=== PATIENT | female | born 1970 | race American Indian/Alaskan Native ===

== ENCOUNTER 2017-09-27 10:54 | Inpatient (IN) | payer OTHER ==
--- NOTE | 2017-09-27 11:33 | Emergency Department Report ---
Chief Complaint: Dizziness Stated Complaint: DIZZINESS Time Seen by Provider: 09/27/17 11:30 - HPI History of Present Illness: PT states she had a black out spell at work. She has a hx of anemia and a nurse advised her to be seen. - ROS Review of Systems: + syncope - fatigue + dizziness - Exam Vital Signs: Vital Signs 09/27/17 11:19 Temperature 98.9 F Pulse Rate 99 H Respiratory 18 Rate Blood Pressure 142/83 O2 Sat by Pulse 100 Oximetry Physical Exam: Pt is alert and appropriate gcs 15 MSE screening note: Focused history and physical exam performed. Due to findings the following was ordered: ekg, labs ED Disposition for MSE Condition: Stable
[2017-09-27 12:11] LABS: Basophils % (Auto) 0.6 % (0.0-1.8); Eosinophils % (Auto) 0.4 % (0.0-4.3); Hematocrit 22.1 % (30.3-42.9); Hemoglobin 6.6 gm/dl (10.1-14.3); Mean Corpuscular HGB Conc 30 % (30-34); Platelet Count 308 K/mm3 (140-440); Red Blood Count 3.95 M/mm3 (3.65-5.03); White Blood Count 8.3 K/mm3 (4.5-11.0)
[2017-09-27 12:13] LABS: Mean Corpuscular Hemoglobin 17 pg (28-32); Mean Corpuscular Volume 56 fl (79-97); Red Cell Distribution Width 21.5 % (13.2-15.2)
[2017-09-27 12:26] LABS: Alanine Aminotransferase 10 units/L (7-56); Albumin 4.2 g/dL (3.9-5); Albumin/Globulin Ratio 1.3 %; Alkaline Phosphatase 77 units/L (35-129); Anion Gap 17 mmol/L; BUN/Creatinine Ratio 14; Bilirubin,Total < 0.20 mg/dL (0.1-1.2); Blood Urea Nitrogen 11 mg/dL (7-17); Calcium 8.9 mg/dL (8.4-10.2); Carbon Dioxide 24 mmol/L (22-30); Chloride 100.8 mmol/L (98-107); Glucose 95 mg/dL (65-100); Potassium 4.4 mmol/L (3.6-5.0); Sodium 137 mmol/L (137-145); Total Protein 7.5 g/dL (6.3-8.2)
[2017-09-27 12:43] LABS: Bilirubin,Urine NEG (Negative); Blood,Urine MOD (Negative); Ketones,Urine NEG (Negative); Leukocyte Esterase,Urine NEG (Negative); Mucus,Urine FEW /HPF; Nitrite,Urine NEG (Negative); Protein,Urine <15 mg/dL mg/dL (Negative); Urobilinogen,Urine < 2.0 mg/dL (<2.0)
[2017-09-27] MEDS ORDERED: NACL 0.9% 500 ML 500 ML IV ONE (13:07)
--- NOTE | 2017-09-27 13:14 | Emergency Department Report ---
HPI - General Chief Complaint: Dizziness Time Seen by Provider: 09/27/17 11:30 - HPI HPI: Room 7 The patient is a 46-year-old female presenting with a chief complaint syncope. He states she was in class when she felt "cloudy." The patient is walking she felt near syncopal so she sat down and her symptoms improved. Patient states she stood up to walk to the back of class to get something to drink and the near -syncopal sensation return should herself down to the cranial and told her status to go get help. The patient didn't loss consciousness and we can find other people around her. The patient states her cycle began 3 days ago and yesterday became heavy. Patient states she goes through approximately 24 tampons a day and 5 pads daily for her cycles. The patient states it seems as though for the past couple months the time between her menses has been decreasing. 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) Additional medical history: anemia - Surgical History Past Surgical History?: No Additional Surgical History: c section x 3, tracheotomy, cerclage x2 - Social History Smoking Status: Never Smoker Substance Use Type: None (denies illicit drug use), Alcohol (occasional) - Medications Home Medications: Home Medications Medication Instructions Recorded Confirmed Last Taken Type Ferrous Sulfate [Iron] 325 mg PO DAILY 09/27/17 09/27/17 Unknown History Multivitamin Tab [Multiple Vitamin 1 each PO QDAY 09/27/17 09/27/17 Unknown History TAB (Theragran)] ED Review of Systems ROS: Stated complaint: DIZZINESS Other details as noted in HPI Comment: All other systems reviewed and negative Constitutional: malaise. denies: chills, fever Eyes: denies: eye pain, eye discharge, vision change ENT: denies: ear pain, throat pain Respiratory: denies: cough, shortness of breath, wheezing Cardiovascular: denies: chest pain, palpitations Endocrine: no symptoms reported Gastrointestinal: denies: abdominal pain, nausea, diarrhea Genitourinary: abnormal menses. denies: urgency, dysuria, discharge Musculoskeletal: denies: back pain, joint swelling, arthralgia Skin: denies: rash, lesions Neurological: other (syncope). denies: headache Psychiatric: denies: anxiety, depression Hematological/Lymphatic: denies: easy bleeding, easy bruising Physical Exam - Physical Exam Vital Signs: Vital Signs 09/27/17 11:19 Temperature 98.9 F Pulse Rate 99 H Respiratory 18 Rate Blood Pressure 142/83 O2 Sat by Pulse 100 Oximetry Physical Exam: GENERAL: The patient is well-developed well-nourished female lying on stretcher not appearing to be in acute distress. [] HEENT: Normocephalic. Atraumatic. Extraocular motions are intact. Patient has moist mucous membranes. NECK: Supple. Trachea midline CHEST/LUNGS: Clear to auscultation. There is no respiratory distress noted. HEART/CARDIOVASCULAR: Regular. There is no tachycardia. There is no gallop rub or murmur. ABDOMEN: Abdomen is soft, nontender. Patient has normal bowel sounds. There is no abdominal distention. SKIN: There is no rash. There is no edema. There is no diaphoresis. NEURO: The patient is awake, alert, and oriented. The patient is cooperative. The patient has no focal neurologic deficits. The patient has normal speech. Cranial nerves II through XII grossly intact, no drift MUSCULOSKELETAL: There is no evidence of acute injury. PELVIC: Small to moderate amount of dark red blood in vaginal vault ED Course Vital Signs 09/27/17 11:19 Temperature 98.9 F Pulse Rate 99 H Respiratory 18 Rate Blood Pressure 142/83 O2 Sat by Pulse 100 Oximetry - Consultations Consultation #1: 09/27/17 16:14 KILN CLEANER paged 09/27/17 16:25 Case discussed with [facility]- discuss case with Dr. Garzon. Admit patient to mother [facility] ED Medical Decision Making - Lab Data Result diagrams: 09/27/17 11:43 09/27/17 11:43 Laboratory Tests 09/27/17 09/27/17 09/27/17 11:43 11:43 11:43 WBC 8.3 RBC 3.95 Hgb 6.6 L Hct 22.1 L MCV 56 L MCH 17 L MCHC 30 RDW 21.5 H Plt Count 308 Lymph % (Auto) 8.2 L Loup % (Auto) 6.0 Eos % (Auto) 0.4 Baso % (Auto) 0.6 Lymph # 0.7 L Loup # 0.5 Eos # 0.0 Baso # 0.1 Seg Neutrophils % 84.8 H Seg Neutrophils # 7.0 Sodium 137 Potassium 4.4 Chloride 100.8 Carbon Dioxide 24 Anion Gap 17 BUN 11 Creatinine 0.8 Estimated GFR > 60 BUN/Creatinine Ratio 14 Glucose 95 Calcium 8.9 Total Bilirubin < 0.20 AST 14 ALT 10 Alkaline Phosphatase 77 Troponin T Total Protein 7.5 Albumin 4.2 Albumin/Globulin Ratio 1.3 HCG, Qual Negative Urine Color Urine Turbidity Urine pH Ur Specific Holden Urine Protein Urine Glucose (UA) Urine Ketones Urine Blood Urine Nitrite Urine Bilirubin Urine Urobilinogen Ur Leukocyte Esterase Urine WBC (Auto) Urine RBC (Auto) Urine Mucus 09/27/17 09/27/17 11:43 11:49 WBC RBC Hgb Hct MCV MCH MCHC RDW Plt Count Lymph % (Auto) Loup % (Auto) Eos % (Auto) Baso % (Auto) Lymph # Loup # Eos # Baso # Seg Neutrophils % Seg Neutrophils # Sodium Potassium Chloride Carbon Dioxide Anion Gap BUN Creatinine Estimated GFR BUN/Creatinine Ratio Glucose Calcium Total Bilirubin AST ALT Alkaline Phosphatase Troponin T < 0.010 Total Protein Albumin Albumin/Globulin Ratio HCG, Qual Urine Color Yellow Urine Turbidity Clear Urine pH 6.0 Ur Specific Holden 1.006 Urine Protein <15 mg/dl Urine Glucose (UA) Neg Urine Ketones Neg Urine Blood Mod Urine Nitrite Neg Urine Bilirubin Neg Urine Urobilinogen < 2.0 Ur Leukocyte Esterase Neg Urine WBC (Auto) 1.0 Urine RBC (Auto) 2.0 Urine Mucus Few - EKG Data -: EKG Interpreted by Ms EKG shows normal: sinus rhythm Rate: normal - EKG Data When compared to previous EKG there are: previous EKG unavailable Interpretation: normal EKG - Radiology Data Radiology results: report reviewed (CT head, pelvic ultrasound), image reviewed (pelvic ultrasound, CT head) Pelvic ultrasound (read by radiologist)-enlarged uterus with small uterine fibroid disease. 3.[address] ovarian cyst CT head (read by radiologist)-no acute intracranial CT abnormality. - Differential Diagnosis symptomatic anemia, ICH, dehydration, Critical care attestation.: If time is entered above; I have spent that time in minutes in the direct care of this critically ill patient, excluding procedure time. ED Disposition Clinical Impression: Symptomatic anemia, Syncope, Menorrhagia Disposition: OP ADMIT IP TO THIS HOSP Is pt being admited?: Yes Does the pt Need Aspirin: No Condition: Fair Instructions: Syncope (ED) Referrals: PRIMARY CARE, [Primary Care Provider] - 3-5 Days Time of Disposition: 16:25
--- NOTE | 2017-09-27 15:04 | Ultrasound Report ---
ULTRASOUND PELVIC COMPLETE ULTRASOUND TRANSVAGINAL HISTORY: Menorrhagia. TECHNIQUE: Transabdominal and transvaginal ultrasound with color and spectral doppler interrogation. No comparison. The uterus is moderately enlarged measuring 14 x 7 x 7 cm. At least one intramural fibroid near the uterine fundus measures 1.1 cm. Smaller uterine fibroids are likely present. No large submucosal fibroid is appreciated. The endometrial stripe measures 11 mm. No mass or fluid collection. The right ovary measures 5.3 x 4.7 x 5.1 cm. A 3.7 cm simple cyst is identified in the right ovary. The left ovary is unremarkable measuring 4.1 x 3.8 x 3.4 cm. No pelvic fluid collection. IMPRESSION: Enlarged uterus with mild uterine fibroid disease. 3.7 cm right ovarian cyst.
[2017-09-27] MEDS ORDERED: NACL 0.9% 1000 ML 1,000 ML ONE (15:27)
--- NOTE | 2017-09-27 15:45 | Cat Scan Report ---
CT HEAD WITHOUT CONTRAST INDICATION: Syncope. COMPARISON: None similar. FINDINGS: Noncontrast head CT demonstrates normal ventricles and sulci without acute or recent infarct, hemorrhage, mass effect or midline shift. No abnormal extra-axial fluid collections. Slight periventricular hypodensities. Posterior fossa structures and basilar cisterns appear within normal limits. Symmetric eye globes. Clear paranasal sinuses and mastoid air cells. Intact calvarium. Normal overlying scalp soft tissues. Few radiopaque dental material incidentally noted. CONCLUSION: No acute intracranial CT abnormality, as described. Thank you for the opportunity to participate in this patient's care.
[2017-09-27] MEDS ORDERED: ZOFRAN IV PRN (16:32)
[2017-09-27] MEDS ORDERED: TYLENOL PO PRN (16:32)
[2017-09-27] MEDS ORDERED: MILK OF MAGNESIA PO PRN (16:32)
[2017-09-27] MEDS ORDERED: PREMARIN IV ONE (16:36)
--- NOTE | 2017-09-27 16:38 | History and Physical Report ---
History of Present Illness Date of examination: 09/27/17 Date of admission: 09/27/17 Chief complaint: dizziness History of present illness: Consulted regarding this pt with HPI recorded as follows by ER provider: "The patient is a 46-year-old female presenting with a chief complaint syncope. He states she was in class when she felt "cloudy." The patient is walking she felt near syncopal so she sat down and her symptoms improved. Patient states she stood up to walk to the back of class to get something to drink and the near-syncopal sensation return should herself down to the cranial and told her status to go get help. The patient didn't loss consciousness and we can find other people around her. The patient states her cycle began 3 days ago and yesterday became heavy. Patient states she goes through approximately 24 tampons a day and 5 pads daily for her cycles. The patient states it seems as though for the past couple months the time between her menses has been decreasing. The patient states she is currently having cycles every 19-20 days " Pt was seen last in the office by Dr. Fan in 2014 and at this time she was s/p transfusion for symptomatic anemia. She desired a mirena at this time and it was attempted by Dr. Fan as well as previous provider prior to seeing Dr. Sales, but could not be placed due to stenosis of the cx . Pt will be admitted at this time, transfusion, and have outpt f/u for work up and treatment of menorrhagia. Pt states that she desires to have a hysterectomy. Past Medical History: Anemia PE Blood Transfusions Past Surgical History: D&C: Tracheotomy 3 yo cercalge x 2 Tubal Ligation Family History Summary: Daughter () - Has No Family History of Ovarvian Cancer - Please disregard relationships chosen - Entered On: 06/18/2015 Daughter (ramez.) - Has No Family History of Diabetes - Please disregard relationships chosen - Entered On: 06/18/2015 Daughter (ramez.) - Has No Family History of Colon Cancer - Please disregard relationships chosen - Entered On: 06/18/2015 Daughter () - Has Family History of Hypertension - Please disregard relationships chosen - Entered On: 06/18/2015 Daughter () - Has Family History of Coronary Heart Disease - Please disregard relationships chosen - Entered On: 06/18/2015 Daughter (biol.) - Has Family History Breast Cancer - Please disregard relationships chosen - Entered On: 06/18/2015 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 only 1cm in size) Social history: no significant social history, Medications and Allergies Allergies Allergy/AdvReac Type Severity Reaction Status Date / Time Penicillins Allergy Swelling Verified 09/27/17 11:19 shellfish derived AdvReac Angioedema Verified 09/27/17 11:19 Home Medications Medication Instructions Recorded Confirmed Last Taken Type Ferrous Sulfate [Iron] 325 mg PO DAILY 09/27/17 09/27/17 Unknown History Multivitamin Tab [Multiple Vitamin 1 each PO QDAY 09/27/17 09/27/17 Unknown History TAB (Theragran)] Active Meds: Active Medications Acetaminophen (Tylenol) 650 mg PO Q4H PRN PRN Reason: Pain MILD(1-3)/Fever >100.5/MURILLO Bisacodyl (Dulcolax) 10 mg ME QDAY PRN PRN Reason: Constipation unrelieved by MOM Estrogens Conjugated (Premarin) 25 mg IV ONCE ONE Stop: 09/27/17 16:37 Magnesium Hydroxide (Milk Of Magnesia) 30 ml PO Q4H PRN PRN Reason: Constipation Ondansetron HCl (Zofran) 4 mg IV Q8H PRN PRN Reason: N/V unrelieved by Reglan Review of Systems All systems: negative - Vital Signs Vital signs: Vital Signs Temp Pulse Resp BP Pulse Ox 98.9 F 99 H 18 142/83 100 09/27/17 11:19 09/27/17 11:19 09/27/17 11:19 09/27/17 11:19 09/27/17 11:19 Temp Pulse Resp BP Pulse Ox 98.9 F 86 18 143/78 100 09/27/17 11:19 09/27/17 14:10 09/27/17 14:08 09/27/17 15:01 09/27/17 15:01 - Physical Exam Lungs: Positive: Normal air movement Genitourinary (Female): Positive: other (deferred as pt states she just changed pad) Extremities: Positive: normal. Negative: tenderness, edema Results Result Diagrams: 09/27/17 11:43 09/27/17 11:43 Abnormal lab results 09/27/17 09/27/17 Range/Units 11:43 13:28 Hgb 6.6 L (10.1-14.3) gm/dl Hct 22.1 L (30.3-42.9) % MCV 56 L (79-97) fl MCH 17 L (28-32) pg RDW 21.5 H (13.2-15.2) % Lymph % (Auto) 8.2 L (13.4-35.0) % Lymph # 0.7 L (1.2-5.4) K/mm3 Seg Neutrophils % 84.8 H (40.0-70.0) % Crossmatch See Detail All other labs normal. Assessment and Plan - Patient Problems (1) Menorrhagia Current Visit: Yes Status: Acute Qualifiers: Menorrahagia type: M Plan to address problem: -s/p premarin times one dose -will give provera po at this time -pt desires hyst (2) Symptomatic anemia Current Visit: Yes Status: Acute Plan to address problem: -s/p one unit of PRBC -will transfuse 2 units -repeat h/h (3) Syncope Current Visit: Yes Status: Acute Qualifiers: Syncope type: S Encounter type: E
[2017-09-27] MEDS ORDERED: DULCOLAX PR PRN (17:30)
[2017-09-27] MEDS ORDERED: WATER FOR INJ (PF) 10 ML ONE (19:37)
[2017-09-28 01:30] LABS: Hematocrit 24.9 % (30.3-42.9); Hemoglobin 7.9 gm/dl (10.1-14.3)
[2017-09-28] MEDS ORDERED: PROVERA PO SCH (10:00)
--- NOTE | 2017-09-28 13:15 | Discharge Summary ---
Providers - Providers Date of Admission: 09/27/17 16:22 Date of discharge: 09/28/17 Attending physician: GAEL PERKINS Primary care physician: BLAIRE CHARLES MD Hospitalization Condition: Fair Hospital course: Please see dictated H&P. Patient admitted receive a blood transfusion did have discussion about history of PE will discharge on no hormones patient is having minimal bleeding at this time with no orthostatic symptoms will follow up in office AST AP patient desires definitive treatment discussed the need a medical workup was started process when she returns to the office patient was discharged with precautions about bleeding and i embolus Exam - Constitutional Vitals: Temp Pulse Resp BP Pulse Ox 98.4 F 83 18 120/68 100 09/28/17 08:30 09/28/17 08:30 09/28/17 08:30 09/28/17 08:30 09/27/17 15:01 Plan Activity: advance as tolerated Diet: regular Additional Instructions: Patient states will make a follow-up appointment in one to weeks in office patient previous patient Follow up with: BLAIRE CHARLES MD [Primary Care Provider] - 3-5 Days
[2017-09-28 18:32] VITALS: BP 129/78
== END 2017-09-28 14:45 | disposition home or self-care (01) | DRG 812 ==
LOC: ED 10:54 → OB 16:22
PROVIDERS: ADMIT Obstetrics & Gynecology; ATTEND Obstetrics & Gynecology
PROC: 30233N1 Transfusion of Nonautologous Red Blood Cells into Peripheral Vein, Percutaneous Approach (ICD-10-PCS; principal; 2017-09-27)
DX: D64.9 Anemia, unspecified (principal); I25.2 Old myocardial infarction; Z98.51 Tubal ligation status; Z86.711 Personal history of pulmonary embolism; Z90.710 Acquired absence of both cervix and uterus; Z88.0 Allergy status to penicillin; N92.0 Excessive and frequent menstruation with regular cycle
CPT/HCPCS: 36415; 70450; 76830; 76856; 80053; 81001; 84484; 84703; 85018; 85025; 86850; 86900; 86901; 86920; 93005; 93010; J1410; J7030; P9016

== ENCOUNTER 2018-05-27 05:59 | Inpatient (IN) | payer OTHER ==
[2018-05-24 10:29] LABS: Basophils # (Auto) 0.1 K/mm3 (0.0-0.1); Basophils % (Auto) 1.1 % (0.0-1.8); Eosinophils # (Auto) 0.1 K/mm3 (0.0-0.4); Hematocrit 31.1 % (30.3-42.9); Hemoglobin 9.8 gm/dl (10.1-14.3); Lymphocytes # (Auto) 0.7 K/mm3 (1.2-5.4); Mean Corpuscular HGB Conc 32 % (30-34); Mean Corpuscular Volume 74 fl (79-97); Monocytes # (Auto) 0.3 K/mm3 (0.0-0.8); Monocytes % (Auto) 6.5 % (0.0-7.3); Platelet Count 350 K/mm3 (140-440); Red Blood Count 4.24 M/mm3 (3.65-5.03); Red Cell Distribution Width 19.2 % (13.2-15.2)
[2018-05-24 10:30] LABS: Mean Corpuscular Hemoglobin 23 pg (28-32)
[2018-05-24 10:43] LABS: Alanine Aminotransferase 7 units/L (7-56); Albumin 3.5 g/dL (3.9-5); BUN/Creatinine Ratio 10; Blood Urea Nitrogen 8 mg/dL (7-17); Calcium 8.6 mg/dL (8.4-10.2); Hemolysis Index 8
--- NOTE | 2018-05-24 16:43 | Anesthesia Consultation ---
Anesthesia Consult and Med Hx Date of service: 05/24/18 - Airway Anesthetic Teeth Evaluation: Good ROM Head & Neck: Adequate Mental/Hyoid Distance: Adequate Mallampati Class: Class I Intubation Access Assessment: Good - Pulmonary Exam CTA: Yes - Cardiac Exam Cardiac Exam: RRR - Pre-Operative Health Status ASA Pre-Surgery Classification: ASA2 Proposed Anesthetic Plan: General (PONV precautions) - Pulmonary Hx Smoking: No Hx Asthma: No COPD: No Hx Pneumonia: Yes (last episode 7 years ago.) Hx Sleep Apnea: No (ESTER PRE SCREEN NEGATIVE) - Cardiovascular System Hx Hypertension: No Hx Heart Attack/AMI: Yes (3 yrs ago) - Endocrine Hx End Stage Renal Disease: No - Hematic Hx Anemia: Yes Hx Sickle Cell Disease: No (SC TRAIT ONLY) - Other Systems Hx Cancer: No
--- NOTE | 2018-05-26 17:03 | History and Physical Report ---
History of Present Illness Date of examination: 05/25/18 History of present illness: Patient has been reassessed/reevaluated. H&P has been reviewed. No interval changes. This is a 47 years old female who presents with menstrual disorder. She complains of irregular menses, mid-cycle spotting, heavy bleeding, dysmenorrhea , history of fibroids and cramping,. Menstrual flow lasts > 7 days. , the patient has had E.D. visits. Patient seen on 03/12/18 for bleeding and pain THe patient also has concerns regarding menstrual disorder. The patient complains of spotting, menses, heavy bleeding, lack of menses, dysmenhorrhea, orthostatic symptoms, fatigue and cramping, but denies she may be , history of thyroid disease, history of fibroids, history of bleeding disorders and lightheadness. Menstrual periods have been irregular and with excessive flow. Menstrual flow lasts >7 days. Patient's work up has included pelvic ultrasounds Treatments have included hospitalizations with blood transfusions Patient's symptoms when present disrupts her normal daily activities Patient desires definitive treatment Vital Signs: Patient Profile: 47 Years Old Female Height: 66 inches (167.64 cm) Weight: 203 pounds (92.27 kg) BMI: 32.76 BSA: 2.01 Past History : 8 Term Births: 2 Premature Births: 1 Living Children: 2 Para: 3 Mult. Births: 0 Prev : 2 Aborta: 5 Elect. Ab: 0 Spont. Ab: 0 Ectopics: 0 # 1 Delivery date: 1987 Delivery type: SAB # 2 Delivery date: 1995 Delivery type: SAB # 3 Delivery date: 1995 Delivery type: SAB # 4 Delivery date: 1997 Weeks Gestation: 24 Delivery type: Comments: Stillbirth labor induced # 5 Delivery date: Delivery type: SAB Comments: D&C done # 6 Delivery date: 1998 Delivery type: SAB # 7 Delivery date: Weeks Gestation: 39 Delivery type: [place] [facility] [place] Sex: Male weight: 8lbs 5oz Comments: Cerclage placed # 8 Delivery date: 11/23/2008 Weeks Gestation: [id number] Delivery type: Anesthesia type: spinal Delivery location: [facility] Sex: female 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: D&C: Tracheotomy 3 yo cercalge x 2 Tubal Ligation Abnormal PAP: negative Uterine Anomaly: negative Infection History HIV Risk Eval: no Hx of STD: chlamydia Current Allergies (reviewed today): PENICILLIN (Critical) Past Medical History: Anemia PE Blood Transfusions Past Surgical History: D&C: Tracheotomy 3 yo cercalge x 2 Tubal Ligation Family History Summary: Has Family History Breast Cancer - Has Family History of Coronary Heart Disease Has Family History of Hypertension Has No Family History of Colon Cancer Has No Family History of Diabetes Has No Family History of Ovarvian Cancer 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 Denies fever, chills, sweats, anorexia, weakness, malaise, weight loss and sleep disorder. Complains of menorrhagia, abnormal vaginal bleeding and genital sores. Denies vaginal discharge, incontinence, dysuria, hematuria, urinary frequency, amenorrhea, pelvic pain, decreased libido, painful periods, painful sex, urinary urgency, hot flashes, vaginal dryness, vaginal itching and vaginal odor. CV Denies chest pains, palpitations, syncope, dyspnea on exertion, orthopnea, PND and peripheral edema. Resp Denies cough, dyspnea at rest, excessive sputum, hemoptysis, wheezing and pleurisy. GI Denies nausea, vomiting, diarrhea, constipation, change in bowel habits, abdominal pain, melena, hematochezia, jaundice, gas/bloating, indigestion/ heartburn, dysphagia and odynophagia. Breast Denies left breast lump, right breast lump, nipple discharge, bloody discharge from nipple, breast pain, abnormal mammogram and breast enlargement. Psych Denies depression, anxiety, irritability and mood swings. [Labs In-House] Past History Past Medical History: other (See HPI ) Past Surgical History: Other (See HPI ) Social history: other (See HPI ) Family history: other (See HPI ) Medications and Allergies Allergies Allergy/AdvReac Type Severity Reaction Status Date / Time Penicillins Allergy Anaphylaxis Verified 05/23/18 14:52 iodine AdvReac Rash Verified 05/27/18 06:47 shellfish derived AdvReac Anaphylaxis Verified 05/23/18 14:52 Home Medications Medication Instructions Recorded Confirmed Last Taken Type Ferrous Sulfate [Iron] 325 mg PO DAILY 09/27/17 05/23/18 Unknown History Multivitamin Tab [Multiple Vitamin 1 each PO QDAY 09/27/17 05/23/18 Unknown History TAB (Theragran)] Active Meds: Active Medications Dexamethasone (Decadron) 4 mg IV PREOP ONE Stop: 05/27/18 06:01 Lactated Ringer's (Lactated Ringers) 1,000 mls @ 100 mls/hr IV DIRECT TERRI Midazolam HCl (Versed) 2 mg IV PREOP NR Stop: 05/27/18 23:59 Scopolamine (Transderm-Scop) 1 each TD PREOP NR Stop: 05/27/18 23:59 Review of Systems Constitutional: other (See HPI ) Exam - Physical Exam Narrative exam: HEENT: normocephalic, no lesions or deformities Skin no significant abnormal lesions or rashes Chest: respiratory effort normal, clear to auscultation Breasts: skin/areolae normal, no nipple discharge, no erythema/warmth/tenderness , and axillae normal. 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 Questions answered. Discussed with patient various medical, surgical and radiological therapies common for treatment including myomectomy hysterectomy and uterine artery embolization Patient desires definitive treatment .Patient desires hysterectomy Discussed risks and benefits of laparotomy, laparoscopy, vaginal and robotic assisted approaches for hysterectomies Patient desires robotic assisted total hysterectomy. Patient desires robotic assisted total hysterectomy. Consent reviewed and signed . The risks and alternatives for this surgery were reviewed with the patient. Discuss the risks of the surgery including infection, bleeding possibly heavy enough to require a blood transfusion, possible damage to bowel, bladder or ureter. Patient understand that this surgery with make her sterile.Patient understands if her ovaries are removed she will become menopausal. Also if unable to complete robitcally a laparotomy may be required (2) Anemia Current Visit: No Status: Acute Qualifiers: Iron deficiency anemia type: chronic blood loss Plan to address problem: Secondary to problem #4 (3) History of pulmonary embolism Current Visit: No Status: Chronic Plan to address problem: PE prophylaxis (4) Menorrhagia Current Visit: No Status: Acute Qualifiers: Menorrahagia type: with irregular cycle Qualified Code(s): N92.1 - Excessive and frequent menstruation with irregular cycle Plan to address problem: Secondary to problem #1 (5) Stenotic cervical os Current Visit: No Status: Chronic
[2018-05-27] MEDS ORDERED: VERSED IV NR (06:00)
[2018-05-27] MEDS ORDERED: LACTATED RINGERS 1,000 ML IV SCH (06:00)
[2018-05-27] MEDS ORDERED: TRANSDERM-SCOP TD NR (06:00)
[2018-05-27] MEDS ORDERED: DECADRON IV ONE (06:00)
[2018-05-27] MEDS ORDERED: NACL BACTERIOSTATIC INFILTRATI ONE (06:30)
[2018-05-27] MEDS ORDERED: GARAMYCIN/NS 120MG/100ML 120 MG/100 ML BAG IV SCH (07:00)
[2018-05-27] MEDS ORDERED: CLEOCIN 600 MG/50 mL 600 MG/50 ML BAG IV SCH (07:00)
[2018-05-27] MEDS ORDERED: GARAMYCIN 120 MG in NACL 0.9% 100 ML IV SCH (07:00)
--- NOTE | 2018-05-27 07:00 | Anesthesia Day of Surgery ---
Anesthesia Day of Surgery - Day of Surgery Patient Examined: Yes Patient H&P Reviewed: Yes Patient is NPO: Yes
[2018-05-27] MEDS ORDERED: PERCOCET 5/325 PO PRN (07:01)
[2018-05-27] MEDS ORDERED: SUBLIMAZE IV ONE (07:01)
[2018-05-27] MEDS ORDERED: ZOFRAN IV PRN ×2 (07:01→12:55)
[2018-05-27] MEDS ORDERED: XYLOCAINE 1% 20 mL INFILTRATI NR (07:15)
[2018-05-27] MEDS ORDERED: METHYLENE BLUE ONE (07:23)
[2018-05-27] MEDS ORDERED: NEOSPORIN GU IR ONE ×2 (07:23→09:13)
[2018-05-27] MEDS ORDERED: SUBLIMAZE ONE ×2 (07:26→07:54)
[2018-05-27] MEDS ORDERED: ZOFRAN ONE (07:26)
[2018-05-27] MEDS ORDERED: ZEMURON IV ONE (07:26)
[2018-05-27] MEDS ORDERED: VERSED ONE (07:26)
[2018-05-27] MEDS ORDERED: XYLOCAINE CARDIAC IV ONE (07:26)
[2018-05-27] MEDS ORDERED: NEO SYNEPHRINE/NS Syringe(OR USE) IV ONE (07:26)
[2018-05-27] MEDS ORDERED: DIPRIVAN 10 MG/ML IV ONE (07:27)
[2018-05-27] MEDS ORDERED: ePHEDrine 50 MG/5 ML-0.9% NACL IV ONE (07:29)
[2018-05-27] MEDS ORDERED: MARCAINE 0.5% 30 ML INFILTRATI ONE (07:30)
[2018-05-27] MEDS ORDERED: MARCAINE 0.5% INFILTRATI NR (08:00)
[2018-05-27] MEDS ORDERED: NACL P/F VIAL (10 ML) INFILTRATI NR (08:00)
[2018-05-27] MEDS ORDERED: NACL 0.9% IR ONE ×2 (09:13)
[2018-05-27] MEDS ORDERED: DECADRON ONE (09:55)
[2018-05-27] MEDS ORDERED: DILAUDID ONE (10:52)
[2018-05-27] MEDS ORDERED: BREVIBLOC IV ONE (11:30)
[2018-05-27] MEDS ORDERED: BLOXIVERZ ONE (11:52)
[2018-05-27] MEDS ORDERED: ROBINUL ONE ×2 (11:53)
[2018-05-27] MEDS: DILAUDID IV PRN ×4 (12:30→13:10)
[2018-05-27] MEDS ORDERED: TORADOL ONE (12:35)
--- NOTE | 2018-05-27 12:38 | Operative Report ---
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 Patient with adhesions of vomiting anterior uterus to bladder and adhesions of the right adnexa the sidewall and the intestines. Specimen(s): Uterus including cervix was bilateral fallopian tubes and right ovary Procedure: Patient was brought to the operating room where general anesthesia was induced without difficulty. Patient was placed in the dorsal lithotomy position. Prepped and draped in the usual sterile manner for robotic procedure. Flores catheter was placed without difficulty. Speculum was placed in the vagina. A large V-Care Uterine manipulator was placed without difficulty. Attention was now switched to the patient's abdomen. A vertical supra-umbilicus incision was made with a scalpel. A 10-12 trocar was placed in this incision under direct visualization. Intra-abdominal placement was verified with no evidence of internal organ damage. The patient pelvic findings were noted as above. It was determined that the patient was a candidate for robotic procedure. On both sides the supra-umbilical incision at 8 cm, incisions were made for robotic trocar. Each robotic trocar was placed under direct visualization with no evidence of internal organ damage. Two cashier assistant ports were then placed. One 5 mm trocar was placed 2 fingerbreadths above the right iliac crest. The second diversional therapist's assistant port was made in the right upper quadrant between the camera port and the right robotic arm port under direct visualization with no evidence of internal organ damage. At this time the patient was placed in extreme Trendelenburg. The da Deb robot was then docked on the patient's left side. At this time I took my place under the robotic operating milian. Starting on the patient's right side the right ureter was clearly seen out of the operative field. The ovarian vessels were clearly seen cauterize and cut with the robotic scissors. The meso salpinx were cauterized and cut reaching to the round ligament. The round ligament was cauterized and cut. The leaves of the broad ligament on that side was anteriorly and posteriorly. The anterior leaves were use to form a bladder flap anteriorly the posterior leaf was cut exposing the uterine vessels on that side. The uterine vessels were cauterized and cut the bladder flap was more clearly made. Attention was then switched to the patient's left side. Where the ureter was again identified and cleared out of the field. The adhesions on the distal 2 to the intestines and left ovary were taken down. Starting at the distal end of fallopian tube the mesosalpinx was cauterized and cut lesion up to the proximal part to her came across the tube cauterized and cut and removed the left fallopian tube. Uterine ovarian complex was then cauterized and cut. The round ligament was cauterized and cut leaves of the broad ligament was then opened exposing the uterine vessels on the left. The uterine vessels were cauterized and cut. Bladder flap was then continued from the left side and the bladder was pushed off the anterior cervix.. At this time the uterus was appearing very cyanotic. After inspecting the bladder flap insured no evidence of bladder injury, the colpotomy was then started. Incision started at 6:00 until the V-Care could be seen. This incision was extended from 6:00 to 9:00. Then from 6:00 to 3:00. Then from 9:00 to 12:00. This incision was extended from 3:00 to 12:00. At this time colpotomy was complete with no evidence of adjacent organ damage. I along with the help of the cashier assistant remove the uterus from through the colpotomy site. Due to the size of the uterus did have a core the uterus out to remove along with the right adnexa. The vaginal cuff was irrigated and cauterized and found to be hemostatic. The cuff was closed with roboticly using 0 V- Lock suture. The uterosacrals were plicated to help prevent prolapse. This closure was hemostatic after irrigation and Bovie. All pedicles were inspected and found to be hemostatic. The ureters were identified bilaterally and found to be functioning normal. The Flores bag had clear yellow urine. Jennifer is placed across the vaginal cuff. All instruments were then removed. The large trocar site was closed in layers and 4-0 Vicryl. The smaller incisions were closed subcuticularly with 4-0 Vicryl. The patient tolerated procedure well. She was awakened in the operating room and accompanied to the recovery room in good condition.
[2018-05-27] MEDS ORDERED: MILK OF MAGNESIA PO PRN (12:55)
[2018-05-27] MEDS: TORADOL IV SCH ×3 (12:55→23:54)
[2018-05-27] MEDS ORDERED: NORCO 5/325 PO PRN (12:55)
[2018-05-27] MEDS: D5LR 1,000 ML IV SCH ×2 (17:00→23:54)
--- NOTE | 2018-05-27 18:21 | Event Note ---
Date: 05/27/18 Discussed operative findings with patient and family. Good urine output. Patient c/o vaginal pain. BP elevated will watch. Will ambulate this pm/ Patient desire mckeon out this pm. Incisions healing well Continue routine post op care
[2018-05-27] MEDS ORDERED: NARCAN 0.4 MG/1 ML IV PRN (19:17)
[2018-05-27] MEDS ORDERED: MORPHINE PCA 30MG/30ML IV SCH (20:00)
[2018-05-27 20:59] LABS: Hematocrit 33.4 % (30.3-42.9); Hemoglobin 10.4 gm/dl (10.1-14.3)
[2018-05-27] MEDS: HEPARIN SUB-Q SCH (21:47)
[2018-05-27] MEDS: COLACE PO SCH (21:48)
[2018-05-27] MEDS: CLEOCIN 600 MG/50 mL 600 MG/50 ML BAG IV SCH (21:49)
[2018-05-28 04:40] LABS: Hematocrit 29.6 % (30.3-42.9); Hemoglobin 9.5 gm/dl (10.1-14.3)
[2018-05-28] MEDS: CLEOCIN 600 MG/50 mL 600 MG/50 ML BAG IV SCH (06:36)
[2018-05-28] MEDS: TORADOL IV SCH (06:37)
[2018-05-28] MEDS: HEPARIN SUB-Q SCH (08:25)
--- NOTE | 2018-05-28 09:51 | Progress Note ---
Assessment and Plan - Patient Problems (1) History of robot-assisted laparoscopic hysterectomy Current Visit: Yes Status: Acute Plan to address problem: D/C GROWTH MEDIA MIXER MUSHROOM Encourage ambulation Possibly d/c after voiding (2) Anemia Current Visit: No Status: Acute Qualifiers: Iron deficiency anemia type: chronic blood loss Plan to address problem: asymptomatic (3) History of pulmonary embolism Current Visit: No Status: Chronic Plan to address problem: Patient gives a h/o PE after extensive traveling back and forth to [place]( 2013). She was anticoagulated in [place] and d/c'd home on Lovenox. She was changed to Coumadin by Dr. Silva. She remained on Coumadin of 6months but never followed up with Dr. Silva to complete her evaluation. She denies family history of inheritable coagulopathy or DVT/PE. Staes multiple SAB d/t cervical insufficiency only. Patient admits she usually does not ambulate obtain in the summer when she's not working. S/w Dr. Silva who agrees with DVT/PE prophylaxis in the form of Lovenox 30mg SQ qd for a short course. Patient was informed of the importance of ambulation ~1mijle qd on her property to prevent DVT/PE. She voiced understanding and agrees to plan. Subjective Date of service: 05/28/18 Principal diagnosis: POD#1 Robotic assisted total hysterectomy with bilateral salpingectomy Interval history: Resting in bed, feels much better now, GROWTH MEDIA MIXER MUSHROOM still infusion, has not voided as of yet Objective - Constitutional Vitals: Vital Signs - 12hr 05/27/18 05/28/18 05/28/18 23:54 00:00 02:00 Temperature 99.7 F H Pulse Rate 85 Respiratory 18 18 16 Rate Blood Pressure 142/86 [Right] O2 Sat by Pulse 100 Oximetry 05/28/18 05/28/18 05/28/18 04:00 04:50 07:05 Temperature 98.2 F 98.6 F Pulse Rate 73 85 Respiratory 18 18 20 Rate Blood Pressure 140/77 127/81 [Right] O2 Sat by Pulse 100 97 Oximetry 05/28/18 07:07 Temperature Pulse Rate Respiratory 18 Rate Blood Pressure [Right] O2 Sat by Pulse Oximetry General appearance: Present: no acute distress - Respiratory Respiratory effort: normal Respiratory: bilateral: CTA - Breasts Breasts: deferred - Cardiovascular Rhythm: regular Extremities: no ischemia, No edema - Gastrointestinal General gastrointestinal: Present: soft, non-distended, normal bowel sounds - Integumentary Integumentary: clear, warm, dry (Incisions clean,dry and intact, no s/s infection) - Musculoskeletal Musculoskeletal: strength equal bilaterally - Psychiatric Psychiatric: appropriate mood/affect - Labs CBC & Chem 7: 05/28/18 04:25 05/24/18 10:10 Labs: Abnormal lab results 05/28/18 Range/Units 04:25 Hgb 9.5 L (10.1-14.3) gm/dl Hct 29.6 L (30.3-42.9) %
[2018-05-28] MEDS ORDERED: LOVENOX SUB-Q ONE ×2 (10:18→20:00)
[2018-05-28] MEDS: COLACE PO SCH (10:20)
[2018-05-28 11:43] VITALS: BP 119/77
[2018-05-28] MEDS: D5LR 1,000 ML IV SCH (12:42)
--- NOTE | 2018-05-28 14:30 | Discharge Summary ---
Providers - Providers Date of Admission: 05/27/18 12:17 Date of discharge: 05/28/18 Attending physician: JOAN CRONIN Primary care physician: EDUCATION DIAGNOSTICIAN Hospitalization Condition: Good Procedures: Robotic assisted total hysterectomy with bilateral salpingectomy Hospital course: Unremarkable, she had severe vaginal pain/cramping that has improved. Her diet was delayed beause she received a tray with foods she does not eat. She was allowed home after successfully voiding, tolerating a diet and she receiving SQ injection education to confirm she knows how to appropriately injected Lovenox. Disposition: DC- TO HOME OR SELFCARE - Discharge Diagnoses (1) History of robot-assisted laparoscopic hysterectomy Status: Acute (2) Anemia Status: Acute Qualifiers: Iron deficiency anemia type: chronic blood loss (3) History of pulmonary embolism Status: Chronic Core Measure Documentation - Palliative Care Palliative Care/ Comfort Measures: Not Applicable - Core Measures Any of the following diagnoses?: history only Exam - Constitutional Vitals: Temp Pulse Resp BP Pulse Ox 98.7 F 91 H 20 119/77 97 05/28/18 11:30 05/28/18 11:30 05/28/18 11:30 05/28/18 11:30 05/28/18 11:30 Plan Activity: other (No sex, ambulate on your property ~1mile a day. Use your Incentive spirometer every 1hour while awake) Weight Bearing Status: Full Weight Bearing Diet: regular (Eat small meals frequently, drink ~ 90oz od water a day and void frequently to avoid pressures on the vagina) Wound: open to air, keep clean and dry Special Instructions: no heavy lifting (> 25#) Follow up with: PRIMARY CAREMD [Primary Care Provider] - 7 Days JOAN CRONIN MD [Staff Physician] - (As scheduled) Prescriptions: Enoxaparin [Lovenox] 30 mg SQ QDAY #30 syringe Ferrous Sulfate [Feosol 325 MG tab] 325 mg PO BID #60 tablet Ibuprofen [Motrin 800 MG tab] 800 mg PO Q6H PRN #30 tablet PRN Reason: Pain oxyCODONE /ACETAMINOPHEN [Percocet 5/325 mg] 1 - 2 tab PO Q4H PRN #30 tablet PRN Reason: Pain, Moderate
== END 2018-05-28 15:35 | disposition home or self-care (01) | DRG 743 ==
LOC: OR 05:59 → OB 12:17
PROVIDERS: ADMIT Obstetrics & Gynecology; ATTEND Obstetrics & Gynecology
PROC: 0UT94ZZ Resection of Uterus, Percutaneous Endoscopic Approach (ICD-10-PCS; principal; 2018-05-27)
PROC: 0UT74ZZ Resection of Bilateral Fallopian Tubes, Percutaneous Endoscopic Approach (ICD-10-PCS; 2018-05-27)
PROC: 0UT04ZZ Resection of Right Ovary, Percutaneous Endoscopic Approach (ICD-10-PCS; 2018-05-27)
PROC: 8E0W4CZ Robotic Assisted Procedure of Trunk Region, Percutaneous Endoscopic Approach (ICD-10-PCS; 2018-05-27)
DX: D25.1 Intramural leiomyoma of uterus (principal); N88.2 Stricture and stenosis of cervix uteri; N92.0 Excessive and frequent menstruation with regular cycle; D64.9 Anemia, unspecified; N80.0 Endometriosis of uterus; Z86.711 Personal history of pulmonary embolism; Z87.01 Personal history of pneumonia (recurrent); I25.2 Old myocardial infarction; Z98.51 Tubal ligation status; Z88.0 Allergy status to penicillin; Z80.3 Family history of malignant neoplasm of breast; Z82.49 Family history of ischemic heart disease and other diseases of the circulatory system; Z91.041 Radiographic dye allergy status; Z91.013 Allergy to seafood; Z79.899 Other long term (current) drug therapy
CPT/HCPCS: 36415; 64450; 80053; 84703; 85014; 85018; 85025; 85049; 86850; 86900; 86901; 88305; 88307; 88342; A4217; J1100; J1170; J1580; J1644; J1650; J1885; J2001; J2250; J2270; J2370; J2405; J2704; J2710; J3010; J7120; J7121; Q9968